=== PATIENT | female | born 1960 | race Caucasian/White ===

== ENCOUNTER 2018-04-20 08:47 | Day surgery (SDC) | payer OTHER | END 2018-04-20 14:48 | disposition home or self-care (01) | LOC: GIL 08:47 | DX: Z12.11 Encounter for screening for malignant neoplasm of colon (principal); K63.5 Polyp of colon; K64.8 Other hemorrhoids; K52.9 Noninfective gastroenteritis and colitis, unspecified; K29.00 Acute gastritis without bleeding; K29.80 Duodenitis without bleeding; J43.9 Emphysema, unspecified; Z99.81 Dependence on supplemental oxygen; Z87.891 Personal history of nicotine dependence | CPT/HCPCS: 43239; 88305; 88312 ==

== ENCOUNTER 2018-08-03 10:43 | Day surgery (SDC) | payer OTHER ==
[2018-08-03 12:49] LABS: ADD MAN DIFF? NO
[2018-08-03 12:53] LABS: WHITE BLOOD COUNT 6.4 10^3/ul (4.8-10.8)
[2018-08-03 12:53] LABS: BASOPHIL # 0.1 10^3/ul (0.0-0.1); BASOPHILS % 1.1 % (0.0-2.0); EOSINOPHILS # 0.2 10^3/ul (0.0-0.5); EOSINOPHILS % 2.8 % (0.0-7.0); HEMATOCRIT 33.5 % (37.0-47.0); HEMOGLOBIN 10.6 g/dl (12.0-16.0); LYMPHOCYTES # 2.6 10^3/ul (0.8-2.9); LYMPHOCYTES % 41.1 % (15.0-51.0); MEAN CORPUSCULAR HEMOGLOBIN 28.8 pg (29.0-33.0); MEAN CORPUSCULAR HGB CONC 31.6 g/dl (32.0-37.0); MEAN PLATELET VOLUME 8.8 fl (7.4-10.4); MONOCYTE # 0.6 10^3/ul (0.3-0.9); MONOCYTES % 8.8 % (0.0-11.0); NEUTROPHIL # 2.9 10^3/ul (1.6-7.5); PLATELET COUNT 426 10^3/UL (140-415); RED BLOOD COUNT 3.68 10^6/ul (4.20-5.40); RED CELL DISTRIBUTION WIDTH 13.1 % (11.5-14.5)
[2018-08-03 13:13] LABS: INR 0.91; PROTIME 12.4 Sec (11.9-14.9)
[2018-08-03 13:14] LABS: PARTIAL THROMBOPLASTIN TIME 32.6 Sec (23.0-35.0)
[2018-08-03 13:20] LABS: ANION GAP 10 (5-13); CALCIUM 9.5 mg/dl (8.4-10.2); CARBON DIOXIDE 25 mmol/L (21-31); CHLORIDE 106 mmol/L (97-110); CREATININE 0.71 mg/dl (0.44-1.00); Estimated GFR > 60 mL/min (>60); GLUCOSE 105 mg/dl (70-220); POTASSIUM 4.7 mmol/L (3.5-5.1); SODIUM 141 mmol/L (135-144)
[2018-08-03 13:24] LABS: BLOOD UREA NITROGEN 22 mg/dl (7-20)
[2018-08-03] MEDS ORDERED: IPRATROPIUM (NEB) 0.5 MG/2.5 ML AMP HHN (13:30)
[2018-08-03] MEDS ORDERED: HYDROmorphONE 1 MG/5 ML IV SYRINGE IV ×2 (13:30)
[2018-08-03] MEDS ORDERED: LABETALOL HCL 20MG INJ IV (13:30)
[2018-08-03] MEDS ORDERED: ALBUTEROL 0.083% (NEB) 2.5 MG/3 ML AMP HHN (13:30)
[2018-08-03] MEDS ORDERED: ONDANSETRON 4 MG INJ IV (13:30)
[2018-08-03] MEDS ORDERED: MEPERIDINE 25 MG INJ IV (13:30)
[2018-08-03] MEDS ORDERED: MIDAZOLAM 1 MG/ML 2 ML INJ IV (13:30)
[2018-08-03] MEDS ORDERED: TRIMETHOBENZAMIDE 100 MG/ML VIAL IM (13:30)
[2018-08-03] MEDS ORDERED: DIPHENHYDRAMINE 50 MG INJ IV (13:30)
[2018-08-03] MEDS ORDERED: FENTAnyl 50 MCG/ML VIAL IV ×3 (13:30)
[2018-08-03] MEDS ORDERED: OXYCODONE/ACETAMINOPHEN (5/325) TAB PO ×2 (13:30)
[2018-08-03] MEDS ORDERED: hydrALAzine 20 MG INJ IV (13:30)
[2018-08-03] MEDS ORDERED: EPHEDrine SULFATE 50 MG/5 ML SYG IV (13:30)
[2018-08-03] MEDS ORDERED: PROPOFOL 20 ML (13:32)
[2018-08-03] MEDS ORDERED: MIDAZOLAM 1 MG/ML 2 ML INJ (13:32)
[2018-08-03] MEDS: LIDOCAINE 1% (MPF) 30 ML INJ (13:38)
[2018-08-03] MEDS: METHYLPREDNISOLONE ACET 40 MG/ML 1 ML INJ ×2 (13:38→14:21)
[2018-08-03] MEDS ORDERED: METHYLPREDNISOLONE ACET 40 MG/ML 1 ML INJ (14:00)
[2018-08-03] MEDS: HYDROmorphONE 1 MG/5 ML IV SYRINGE IV (14:04)
== END 2018-08-03 15:25 | disposition home or self-care (01) ==
LOC: SDS 10:43
DX: M51.16 Intervertebral disc disorders with radiculopathy, lumbar region (principal); E78.5 Hyperlipidemia, unspecified; E03.9 Hypothyroidism, unspecified; J44.9 Chronic obstructive pulmonary disease, unspecified
CPT/HCPCS: 62323; 71045; 72020; 80048; 85025; 85610; 85730; 93005

== ENCOUNTER 2018-08-27 17:02 | Emergency (ER) | payer OTHER, MEDICARE ==
[2018-08-27] MEDS: HYDROCODONE/APAP (5/325) TAB PO (18:34)
== END 2018-08-27 20:26 | disposition home or self-care (01) ==
LOC: FTE 17:02
DX: S92.901A Unspecified fracture of right foot, initial encounter for closed fracture (principal); J44.9 Chronic obstructive pulmonary disease, unspecified; X58.XXXA Exposure to other specified factors, initial encounter; Y92.9 Unspecified place or not applicable; Z87.891 Personal history of nicotine dependence
CPT/HCPCS: 73610; 73610-RT; 73630; 99283-25

== ENCOUNTER 2018-10-18 09:03 | Day surgery (SDC) | payer OTHER ==
[2018-10-18] MEDS: LACTATED RINGER'S 1,000 ML IV (09:47)
[2018-10-18] MEDS ORDERED: BACITRACIN/POLYMYXIN 28.35 GM OINT TOP (11:21)
[2018-10-18] MEDS ORDERED: PROPOFOL 20 ML ×3 (11:53→12:15)
[2018-10-18] MEDS ORDERED: LIDOCAINE 2% (SDV) 5 ML INJ (11:55)
[2018-10-18] MEDS ORDERED: FENTAnyl 50 MCG/ML VIAL (11:55)
[2018-10-18] MEDS ORDERED: ROCURONIUM 50 MG INJ (11:55)
[2018-10-18] MEDS ORDERED: DEXAMETHASONE 4 MG/ML 5 ML INJ (12:07)
[2018-10-18] MEDS ORDERED: ONDANSETRON 4 MG INJ (12:09)
[2018-10-18] MEDS: COCAINE 4% 4 ML TOP (12:11)
[2018-10-18] MEDS: LIDOCAINE 1%/EPI 30 ML INJ (12:11)
[2018-10-18] MEDS ORDERED: CEFAZOLIN 1 GM INJ (12:15)
[2018-10-18] MEDS ORDERED: NEOSTIGMINE 3 MG/3 ML SYRINGE (12:49)
[2018-10-18] MEDS ORDERED: GLYCOPYRROLATE 0.4 MG INJ (12:49)
[2018-10-18] MEDS: FENTAnyl 50 MCG/ML VIAL IV ×4 (13:07→13:26)
[2018-10-18] MEDS: ONDANSETRON 4 MG INJ IV (13:14)
[2018-10-18] MEDS ORDERED: MEPERIDINE 25 MG INJ IV (13:30)
[2018-10-18] MEDS ORDERED: ALBUTEROL 0.083% (NEB) 2.5 MG/3 ML AMP HHN (13:30)
[2018-10-18] MEDS ORDERED: MIDAZOLAM 1 MG/ML 2 ML INJ IV (13:30)
[2018-10-18] MEDS ORDERED: METOCLOPRAMIDE 10 MG INJ IV (13:30)
[2018-10-18] MEDS ORDERED: LABETALOL HCL 20MG INJ IV (13:30)
[2018-10-18] MEDS ORDERED: hydrALAzine 20 MG INJ IV (13:30)
[2018-10-18] MEDS ORDERED: EPHEDrine 25 MG/5 ML SYG IV (13:30)
[2018-10-18] MEDS ORDERED: morphine 2 MG INJ IV ×2 (13:30)
[2018-10-18] MEDS ORDERED: FENTAnyl 50 MCG/ML VIAL IV (13:30)
[2018-10-18] MEDS ORDERED: OXYCODONE/ACETAMINOPHEN (5/325) TAB PO ×2 (13:30)
[2018-10-18] MEDS ORDERED: DIPHENHYDRAMINE 50 MG INJ IV (13:30)
== END 2018-10-18 14:45 | disposition home or self-care (01) ==
LOC: SDS 09:03
DX: J34.2 Deviated nasal septum (principal); J34.3 Hypertrophy of nasal turbinates; J44.9 Chronic obstructive pulmonary disease, unspecified
CPT/HCPCS: 30140; 88300